=== PATIENT | female | born 1945 | race Caucasian/White ===

== ENCOUNTER 2020-01-28 02:14 | Outpatient (CLI) | payer MEDICARE, SELFPAY ==
[2020-01-28 18:23] LABS: SARS-CoV-2 RNA PCR Negative
== END 2020-01-28 02:15 | disposition home or self-care (01) ==
LOC: ANHCOVIDDT 02:14
PROVIDERS: PCP Physician Assistant; Visit Provider Internal Medicine Gastroenterology
DX: Z01.812 Encounter for preprocedural laboratory examination (principal); Z20.828 Contact with and (suspected) exposure to other viral communicable diseases
CPT/HCPCS: 87635; C9803; U0003

== ENCOUNTER 2020-01-30 01:24 | Day surgery (SDC) | payer MEDICARE, SELFPAY ==
[2020-01-24 09:50] VITALS: BMI 30.9
[2020-01-30] MEDS: LACTATED RINGERS 1,000 ML 150 ML IV CONT (09:09)
--- NOTE | 2020-01-30 09:18 | WPDGICN ---
Assessment and Plan Assessment and plan (1) Family history of colon cancer in father: Code(s): Z80.0 - Family history of malignant neoplasm of digestive organs Status: Acute (2) Anemia: Code(s): D64.9 - Anemia, unspecified Status: Acute Assessment and Plan: Patient has ongoing anemia the etiology of which is unclear. Because of his persistent low blood count an EGD is requested. Previous recent colonoscopy in 2016 was unremarkable. Further recommendations may be given after endoscopy. If anemia persists consider hematology evaluation if GI Endoscopyis not fruitful. GI Consult Note Consult date/time: 01/30/20 09:18 HPI: Kaylin Alvares is a 74 year old female seen in evaluation at the request of ANUM Alba. Patient presents for EGD because of ongoing anemia. Patient initially identified as having anemia in the fall of 2018. She also had change of bowel habits. For these reasons as well as a family history of colon cancer colonoscopy be formed May 2019 was unremarkable. Patient has had ongoing anemia and for this reason is referred for EGD today. She denies abdominal pain. She has had no evidence for bleeding. She denies abdominal pain. Her bowel habits are normal there has been no black or bloody stools. She has describes no bleeding elsewhere. Family history is significant her father had colon cancer. Past medical history is significant for diabetes atherosclerotic heart disease. Review of Systems Review of Systems: All systems reviewed & are unremarkable except as noted in HPI and below PMFSH Past Medical History Medical History Diabetes GERD (gastroesophageal reflux disease) Hyperlipidemia Hypertension Myocardial infarct, old 1986 no no stents and no residual problems Social History Social History Smoking end date: 06/05/96 Alcohol intake: never Meds Home Medications and Allergies Home Medications Medication Instructions Recorded Confirmed Type aspirin [Adult Low Dose Aspirin] 81 mg PO DAILY 04/29/19 01/30/20 History atorvastatin 40 mg PO DAILY 04/29/19 01/30/20 History baclofen 10 mg PO DAILY 04/29/19 01/30/20 History clonazepam 1 - 2 mg PO DAILY 04/29/19 01/30/20 History ergocalciferol (vitamin D2) See Rx Instructions .ROUTE .COMPLEX 04/29/19 01/30/20 History [Vitamin D2] gemfibrozil 600 mg PO DAILY 04/29/19 01/30/20 History levothyroxine 100 mcg PO DAILY 04/29/19 01/30/20 History liraglutide [Victoza 2-Ismael] 0.6 mg SUBCUT DAILY 04/29/19 01/30/20 History lisinopril 5 mg PO DAILY 04/29/19 01/30/20 History metformin 1,000 mg PO BID 04/29/19 01/30/20 History Allergies Allergy/AdvReac Type Severity Reaction Status Date / Time Penicillins Allergy Mild Rash Verified 01/30/20 08:55 Exam Narrative: Exam Narrative: Physical exam reveals patient to be alert. Vital signs stable. HEENT exam unremarkable. Lungs are clear to auscultation and percussion. Heart is without murmur or extra sounds. Abdominal exam bowel sounds are present soft nontender with no organomegaly. Digital external rectal exam normal.
[2020-01-30 09:22] VITALS: BP 141/67; PULSE 79; RESP 17; TEMP 36.9; O2SAT 97; BMI 31.0
[2020-01-30 09:22] LABS: Glucose Point of Care 121 (65-105)
--- NOTE | 2020-01-30 09:47 | WPDANESEPPF ---
Anes - Initial Pre Proc Eval Procedure: Operation Date: 01/30/20 10:00 Proposed Procedures p Esophagogastroduodenoscopy - Aayush Morfin MD Date/Time: 01/30/20 09:47 Surgeon: Aayush Morfin MD Pre Op Diagnosis: iron deficiency anemia Patient Data Age: 74 Gender: F Height: 5 ft 4 in Weight: 82 kg Last Vital Signs Temp 98.5 F 01/30/20 09:22 Pulse 79 01/30/20 09:22 Resp 17 01/30/20 09:22 BP 141/67 H 01/30/20 09:22 Pulse Ox 97 01/30/20 09:22 Allergies Allergy/AdvReac Type Severity Reaction Status Date / Time Penicillins Allergy Mild Rash Verified 01/30/20 08:55 Home Medications Medication Instructions Recorded Confirmed Type aspirin [Adult Low Dose Aspirin] 81 mg PO DAILY 04/29/19 01/30/20 History atorvastatin 40 mg PO DAILY 04/29/19 01/30/20 History baclofen 10 mg PO DAILY 04/29/19 01/30/20 History clonazepam 1 - 2 mg PO DAILY 04/29/19 01/30/20 History ergocalciferol (vitamin D2) See Rx Instructions .ROUTE .COMPLEX 04/29/19 01/30/20 History [Vitamin D2] gemfibrozil 600 mg PO DAILY 04/29/19 01/30/20 History levothyroxine 100 mcg PO DAILY 04/29/19 01/30/20 History liraglutide [Victoza 2-Ismael] 0.6 mg SUBCUT DAILY 04/29/19 01/30/20 History lisinopril 5 mg PO DAILY 04/29/19 01/30/20 History metformin 1,000 mg PO BID 04/29/19 01/30/20 History Laboratory Tests 01/30/20 09:17 POC Capillary Glucose 121 mg/dl H mg/dl (65-105) Patient hx anesthesia problems: none Family hx anesthesia problems: none PMFSH Past Medical History Medical History Diabetes GERD (gastroesophageal reflux disease) Hyperlipidemia Hypertension Myocardial infarct, old 1986 no no stents and no residual problems Social History Social History Smoking end date: 06/05/96 Alcohol intake: never Anes - Eval Final PreProcedure Day of Procedure 01/30/20 09:47 Patient weight: overweight Heart: regular rate and rhythm Lungs: clear to auscultation Airway: Mallampati scale class III Neurological: alert and oriented Last oral intake: >/= 8 hours ASA classification: III Emergent: no Anesthetic plan: proceed Anesthesia type and monitoring: general GIVS and standard monitoring Informed Consent: The patient's anesthetic plan and its attendant risks and benefits were discussed with the patient/family/POA. Questions were solicited and answers provided to the satisfaction of the patient/family/POA.
[2020-01-30 10:04] VITALS: BP 117/64; PULSE 78; RESP 29; O2SAT 97
[2020-01-30 10:14] VITALS: BP 119/61; PULSE 77; RESP 26; O2SAT 95
[2020-01-30 10:24] VITALS: BP 129/63; PULSE 72; RESP 22; O2SAT 96
[2020-01-30 10:26] LABS: Glucose Point of Care 113 (65-105)
== END 2020-01-30 10:41 | disposition home or self-care (01) ==
PROVIDERS: PCP Physician Assistant; Visit Provider Internal Medicine Gastroenterology
PROC: 0DJ08ZZ Inspection of Upper Intestinal Tract, Via Natural or Artificial Opening Endoscopic (ICD-10-PCS; CPT 43235; principal; 2020-01-30 10:00)
DX: D64.9 Anemia, unspecified (principal); Z80.0 Family history of malignant neoplasm of digestive organs; E11.9 Type 2 diabetes mellitus without complications; K21.9 Gastro-esophageal reflux disease without esophagitis; E78.5 Hyperlipidemia, unspecified; I10 Essential (primary) hypertension; I25.2 Old myocardial infarction
CPT/HCPCS: 43235; J2704; J7120

== ENCOUNTER 2020-05-08 11:25 | Emergency (ER) | payer MEDICARE, SELFPAY ==
--- NOTE | ~2020-05-08 | XR_ITS ---
EXAMINATION: XR chest 1V portable EXAM DATE: 05/08/2020 12:20 INDICATION: Cough. TECHNIQUE: Frontal and lateral projections of the chest obtained and reviewed. Comparison is made to prior examination from 05/06/2013. FINDINGS: Some ill-defined but somewhat linear left basilar peripheral opacities probably atelectasis and/or infection. Please clinically correlate. The lungs are otherwise clear. There are no pleural effusions. The cardiomediastinal silhouette is within normal limits. There is no pneumothorax suspe cted. The bones and soft tissues are unremarkable. Some chronic hyperinflation. IMPRESSION: Left basilar subsegmental opacities, likely infection or atelectasis. Reviewed, dictated and finalized at location A. BOLTER OPERATOR IMPRESSION: Left basilar subsegmental opacities, likely infection or atelectasi s.
[2020-05-08 11:35] VITALS: BP 115/60; PULSE 70; RESP 18; TEMP 36.2; O2SAT 99
--- NOTE | 2020-05-08 12:48 | ED.URI ---
HPI - URI/Sore Throat General Chief Complaint: Upper Respiratory Infection Stated Complaint: cough, congestion Time Seen by Provider: 05/08/20 12:16 Source: patient Mode of arrival: ambulatory Limitations: no limitations History of Present Illness HPI Narrative: Patient 75-year-old female complaining of cough, nasal congestion, chest congestion, body aches, headache x3 weeks. Patient denies any neck pain or stiffness, chest pain, shortness of breath, abdominal pain, nausea, vomiting, diarrhea, rash or urinary symptoms. MD elicited complaint: cough, rhinorrhea and nasal congestion Related Data Home Medications Medication Instructions Recorded Confirmed aspirin [Adult Low Dose Aspirin] 81 mg PO DAILY 04/29/19 01/30/20 atorvastatin 40 mg PO DAILY 04/29/19 01/30/20 clonazepam 1 - 2 mg PO DAILY 04/29/19 01/30/20 ergocalciferol (vitamin D2) See Rx Instructions .ROUTE .COMPLEX 04/29/19 01/30/20 [Vitamin D2] gemfibrozil 600 mg PO BID 04/29/19 01/30/20 levothyroxine 100 mcg PO DAILY 04/29/19 01/30/20 liraglutide [Victoza 2-Ismael] 0.6 mg SUBCUT DAILY 04/29/19 01/30/20 lisinopril 5 mg PO DAILY 04/29/19 01/30/20 metformin 1,000 mg PO BID 04/29/19 01/30/20 doxepin 25 mg PO DAILY 05/08/20 [id number] tablet PO 05/08/20 [Adult Multi plus [place]-3] niacin 500 mg PO DAILY 05/08/20 trazodone 50 mg PO HS 05/08/20 Allergies Allergy/AdvReac Type Severity Reaction Status Date / Time Penicillins Allergy Mild Rash Verified 01/30/20 08:55 Review of Systems Review of Systems: All systems reviewed & are unremarkable except as noted in HPI and below Constitutional: Constitutional: Denies chills, Denies excessive sweating, Denies fatigue, Denies fever(s), Denies headache(s), Denies lethargy, Denies malaise, Denies weakness and Denies weight loss Eyes: Eyes: Denies blurry vision, Denies change in vision and Denies loss of vision ENT: Denies dizziness, Denies ear discharge, Denies lip swelling, Denies epistaxis, Denies neck pain, Denies throat swelling and Denies tongue swelling Cardiovascular: Cardiovascular: Denies chest pain, Denies chest pain at rest, Denies chest pain with activity, Denies diaphoresis, Denies rapid heart rate, Denies edema, Denies irregular heart rhythm, Denies lightheadedness, Denies palpitations, Denies dyspnea and Denies dyspnea on exertion Respiratory: Respiratory: Denies chest congestion, Denies cough, Denies hemoptysis, Denies dyspnea and Denies dyspnea on exertion Gastrointestinal: Gastrointestinal: Denies abdominal pain, Denies melena, Denies hematochezia, Denies diarrhea, Denies nausea, Denies vomiting and Denies hematemesis Musculoskeletal: Musculoskeletal: Denies abnormal gait, Denies deformity, Denies joint swelling, Denies limited range of motion, Denies neck pain and Denies numbness Neurologic: Denies Abnormal speech present, Denies abnormal gait, Denies confusion, Denies dizziness, Denies headache(s), Denies focal weakness, Denies loss of vision, Denies numbness, Denies Other visual disturbances, Denies Sensory deficit (Neuro) and Denies weakness Psychiatric: Psychiatric: Denies confusion, Denies depression, Denies auditory hallucinations, Denies homicidal ideation and Denies suicidal ideation Endocrine: Endocrine: Denies cold intolerance, Denies excessive sweating, Denies fatigue, Denies heat intolerance and Denies palpitations Hematologic/Lymphatic: Hematologic/Lymphatic: Denies easy bleeding and Denies easy bruising Allergic/Immunologic: Allergic/Immunologic: Denies lip swelling, Denies throat swelling and Denies tongue swelling [facility] Past Medical History Medical History (Updated 05/08/20 @ 15:46 by Stephen Michelle MD) Diabetes GERD (gastroesophageal reflux disease) Hyperlipidemia Hypertension Myocardial infarct, old 1986 no no stents and no residual problems Family History Family History Other Carcinoma of colon Diabetes
[2020-05-08 13:16] LABS: Alanine Aminotransferase 40 U/L (4-35); Albumin Level 4.2 g/dL (3.5-5.1); Alkaline Phosphatase 117 U/L (38-126); Anion Gap 9 mmol/L (8-16); Aspartate Amino Transferase 60 U/L (14-36); Basophils Percent Auto 0.7 % (0.2-1.2); Bilirubin,Total 0.3 mg/dL (0.2-1.3); Blood Urea Nitrogen 16 mg/dL (7-17); Calcium 9.2 mg/dL (8.4-10.2); Carbon Dioxide 27 mmol/L (22-30); Chloride 102 mmol/L (98-107); Eosinophils Absolute Auto 0.1 K/mm3 (0-0.3); Eosinophils Percent Auto 2.2 % (0-4.4); Estimated CRCL calculation 49 ml/min; Estimated Glomerular Filt Rate > 60; Glucose 73 mg/dL (65-105); Hematocrit 29.1 % (37.0-47.0); Hemoglobin 8.9 g/dL (12.0-15.0); Immature Granulocyte Absolute 0.01 K/mm3 (0.00-0.031); Immature Granulocyte Percent A 0.2 % (0-0.5); Lymphocytes Absolute Auto 1.66 K/mm3 (0.9-3.2); Mean Corpuscular HGB Conc 30.6 g/dl (32-36); Mean Corpuscular Hemoglobin 25.3 pg (26-34); Mean Corpuscular Volume 82.7 fl (80-100); Mean Platelet Volume 9.5 fl (7.4-10.4); Monocytes Absolute Auto 0.4 K/mm3 (0.1-0.6); Monocytes Percent Auto 6.7 % (2.6-8.5); Neutrophils Absolute Auto 3.3 K/mm3 (1.3-6.7); Neutrophils Percent Auto 60.2 % (45.5-73.1); Platelet Count Result 265 k/mm3 (150-375); Potassium 4.8 mmol/L (3.4-5.0); Red Blood Count 3.52 M/mm3 (4.2-5.4); Red Cell Distribution Width 14.5 % (11.5-14.5); Sodium 138 mmol/L (137-145); White Blood Count 5.5 K/mm3 (4.5-10.0)
--- NOTE | 2020-05-08 14:49 | ECG_ITS ---
Measurements Intervals [place] Rate: 66 P: 50 [place]: 125 QRS: -40 QRSD: 137 T: 77 QT: 439 QTc: 463 Interpretive Statements SINUS RHYTHM LEFT AXIS DEVIATION INTRAVENTRICULAR CONDUCTION DELAY CANNOT RULE OUT SEPTAL INFARCT, AGE INDETERMINATE T WAVE ABNORMALITY IN ANTERIOR LEADS- CONSIDER ISCHEMIA ABNORMAL ECG Electronically Signed On 05-08-2020 15:16:25 GINNER HELPER by Carlos Finnegan D.O.
[2020-05-08 15:16] LABS: Troponin I < 0.012 ng/mL (0.000-0.034)
[2020-05-09 00:20] LABS: SARS-CoV-2 RNA PCR Positive
== END 2020-05-08 16:02 | disposition home or self-care (01) ==
PROVIDERS: Emergency Provider Emergency Medicine; PCP Physician Assistant
DX: J06.9 Acute upper respiratory infection, unspecified (principal); Z20.828 Contact with and (suspected) exposure to other viral communicable diseases; R94.31 Abnormal electrocardiogram [ECG] [EKG]; E11.9 Type 2 diabetes mellitus without complications; K21.9 Gastro-esophageal reflux disease without esophagitis; E78.5 Hyperlipidemia, unspecified; I10 Essential (primary) hypertension; I25.2 Old myocardial infarction
CPT/HCPCS: 36415; 71045; 80053; 84484; 85025; 87635; 87804; 93005; 99283; C9803; U0003

== ENCOUNTER → 2021-04-06 09:19 | Outpatient (CLI) | payer MEDICARE, SELFPAY ==
--- NOTE | ~2021-04-06 | XR_ITS ---
EXAMINATION: XR chest 2V DATE: 04/06/2021 10:03 INDICATION: Productive cough TECHNIQUE: PA and lateral views of the chest are obtained. COMPARISON: 05/08/2020 FINDINGS: The lungs are free of acute opacities. There is no pleural effusion or pneumothorax. The ca rdiomediastinal silhouette is normal. There is mild thoracic spondylosis. IMPRESSION: 1. No acute cardiopulmonary abnormality. Reviewed, dictated and finalized at location B.
== END ==
PROVIDERS: PCP Physician Assistant; Visit Provider Physician Assistant
DX: R05.9 Cough, unspecified (principal)
CPT/HCPCS: 71046

== ENCOUNTER → 2022-05-05 09:21 | Outpatient (CLI) | payer MEDICARE, SELFPAY ==
--- NOTE | ~2022-05-05 | CT_ITS ---
EXAMINATION: CT abdomen wo/w con DATE: 05/05/2022 10:04 INDICATION: Abnormal findings of the liver and biliary tract TECHNIQUE: Computed tomography (CT) of the abdomen was performed without and with 100 cc Omnipaque 35 0 intravenous contrast. The dose-length product was 1866.83 mGy-cm. Automated exposure control and it erative reconstruction technique were employed. COMPARISON: None. FINDINGS: There is bilateral lower lobe atelectasis. There is a 3 mm right lower lobe nodule. No sign ificant pleural or pericardial effusion. Heart size normal. There is mild atherosclerosis of the aort a. There are layering gallstones. Gallbladder mildly distended. No renal stones. There is hepatomegal y. No biliary dilatation. No stones identified in the common duct which is nondilated. There is splen omegaly. There are varicosities in the upper abdomen. There is nodular appearance to the liver surfac e, consistent with cirrhosis. The portal vein is prominent. The pancreas, adrenal glands and right ki dney are unremarkable. There is a small subcentimeter hypodensity of the left kidney anteriorly, most likely benign cysts. No significant lymphadenopathy. Nonobstructive bowel pattern. Colonic diverticu losis without evidence for diverticulitis. Mild lumbar spondylosis. No focal lytic or blastic lesions . IMPRESSION: 1. Cirrhosis of the liver with hepatosplenomegaly and probable portal hypertension. 2: Cholelithiasis with mild gallbladder distention. 3: 3 mm right lower lobe nodule, likely benign. Consider follow-up CT in 12 months. Bilateral lower lobe atelectasis. Reviewed, dictated and finalized at location A. TRONIC EQUIPMENT SET UP OPERATOR IMPRESSION: 1. Cirrhosis of the liver with hepatosplenomegaly and probable portal hypertens ion. 2: Cholelithiasis with mild gallbladder distention. 3: 3 mm right lower lobe nodule, likely benign. Consider follow-up CT in 12 mo nths. Bilateral lower lobe atelectasis.
[2022-05-05 09:54] LABS: Estimated Glomerular Filt Rate 40
== END ==
PROVIDERS: PCP Physician Assistant; Visit Provider Physician Assistant
DX: R93.2 Abnormal findings on diagnostic imaging of liver and biliary tract (principal); K74.60 Unspecified cirrhosis of liver; R16.2 Hepatomegaly with splenomegaly, not elsewhere classified; K80.20 Calculus of gallbladder without cholecystitis without obstruction; R91.1 Solitary pulmonary nodule; R91.8 Other nonspecific abnormal finding of lung field
CPT/HCPCS: 74170; Q9967

== ENCOUNTER 2022-05-31 11:04 | Emergency (ER) | payer MEDICARE, SELFPAY ==
--- NOTE | ~2022-05-31 | XR_ITS ---
Clinical Indication: Cough PA and lateral views of the chest: Comparison: 04/06/2021 Findings: Questionable focal airspace opacity or even pulmonary nodule at the right lung base. Left l catarino clear. Cardiomediastinal silhouette is within normal limits. Bones and soft tissues are unremark able. Impression: Questionable focal airspace opacity or pulmonary nodule right lung base. Consider follow-up exam or C T to further evaluate. Reviewed, dictated and finalized at location M. ADVISOR Impression: Questionable focal airspace opacity or pulmonary nodule right lung base. Consid er follow-up exam or CT to further evaluate.
[2022-05-31 12:34] VITALS: BP 101/52; PULSE 89; RESP 16; TEMP 36.4; O2SAT 94
--- NOTE | 2022-05-31 12:41 | ED.URI ---
HPI - URI/Sore Throat General Chief Complaint: Upper Respiratory Infection Stated Complaint: cold/flu sx Time Seen by Provider: 05/31/22 12:41 Source: patient and RN notes reviewed Mode of arrival: ambulatory Limitations: no limitations History of Present Illness HPI Narrative: 77 y/o female presented for c/o cough and head and chest congestion for 2 weeks. Also reports cramping under bilateral lower ribs. Denies sob, wheezing, n/v/d/fever/chills. Taking Robitussin and Mucinex for symptoms. Hx cirrhosis, [place] age 42, diabetes. MD elicited complaint: cough Related Data Home Medications Medication Instructions Recorded Confirmed aspirin 81 mg tablet,delayed 81 mg PO DAILY 04/29/19 05/31/22 release (Adult Low Dose Aspirin) atorvastatin 40 mg tablet 40 mg PO DAILY 04/29/19 05/31/22 clonazepam 1 mg tablet 1 mg PO DAILY 04/29/19 05/31/22 ergocalciferol (vitamin D2) 1,250 50,000 unit DAILY 04/29/19 05/31/22 mcg (50,000 unit) capsule (Vitamin D2) gemfibrozil 600 mg tablet 600 mg PO BID 04/29/19 05/31/22 levothyroxine 100 mcg tablet 100 mcg PO DAILY 04/29/19 05/31/22 liraglutide 0.6 mg/0.1 mL (18 mg/3 0.6 mg subcut DAILY 04/29/19 05/31/22 mL) subcutaneous pen injector (Victoza 2-Ismael) lisinopril 5 mg tablet 20 mg PO DAILY 04/29/19 05/31/22 metformin 1,000 mg tablet 1,000 mg PO BID 04/29/19 05/31/22 baclofen 10 mg tablet 10 mg BID 05/31/22 05/31/22 magnesium 200 mg tablet 200 mg PO DAILY 05/31/22 05/31/22 mecobalamin (vitamin B12) 1,000 1,000 mcg PO DAILY 05/31/22 05/31/22 mcg chewable tablet paroxetine HCl 20 mg tablet 20 mg PO DAILY 05/31/22 05/31/22 warfarin 5 mg tablet 5 mg DAILY 05/31/22 05/31/22 Allergies Allergy/AdvReac Type Severity Reaction Status Date / Time Penicillins Allergy Mild Rash Verified 05/31/22 12:43 Review of Systems Review of Systems: CONSTITUTIONAL: Denies malaise, chills, sweats, fever EYES: Denies visual changes, redness, or discharge ENT: Reports rhinorrhea, congestion, sinus pain,denies otalgia, sore throat CARDIOVASCULAR: Denies chest pain, palpitations, edema RESPIRATORY: Reports cough, post nasal drainage. Denies dyspnea GASTROINTESTINAL: Denies abdominal pain, nausea, vomiting, diarrhea SKIN: Denies rash or itching MUSCULOSKELETAL: denies myalgia NEUROLOGIC: Denies headache [facility] Past Medical History Medical History (Updated 05/31/22 @ 13:23 by Alicia Hernandez APRN) Diabetes GERD (gastroesophageal reflux disease) Hyperlipidemia Hypertension Myocardial infarct, old 1986 no no stents and no residual problems Family History Family History Other Carcinoma of colon Diabetes mellitus Family history of heart disease in male family member before age 55 Social History Social History Smoking end date: 06/05/96 Alcohol intake: never Gender identity (if verbalized by the patient): Female Exam Narrative: GENERAL: Ill-appearing, nontoxic EYES: PERRLA, conjunctivae clear ENT: Mucous membranes moist. TMs pearly murray with dull light reflex bilaterally; no tragal tenderness. NECK: Supple. No lymphadenopathy CHEST: Lungs diminished throughout all owen. Faint wheezing to bases. No respiratory distress, speaks in full sentences. HEART: Regular rate and rhythm. No murmur heard. SKIN: Warm, dry, no rash. NEURO: Alert and oriented x3. PSYCH: Normal mood and affect Course Course Emergency Course: Patient is aware of diagnosis, understands and agrees to treatment plan. Anticipatory guidance given. Patient agrees to follow-up as directed and is aware of reasons to seek care at the emergency department. Portions of this record may have been created with voice recognition software Level of Care: Express Care Visit Vital Signs Vital signs: Vital Signs Temperature 97.6 F 05/31/22 12:34 Pulse Rate 89 05/31/22 12:34 Respiratory Rate 16
== END 2022-05-31 13:27 | disposition home or self-care (01) ==
PROVIDERS: Emergency Provider Nurse Practitioner Family; PCP Physician Assistant
DX: J06.9 Acute upper respiratory infection, unspecified (principal); R91.8 Other nonspecific abnormal finding of lung field; Z87.891 Personal history of nicotine dependence; E11.9 Type 2 diabetes mellitus without complications; Z79.84 Long term (current) use of oral hypoglycemic drugs; K21.9 Gastro-esophageal reflux disease without esophagitis; E78.5 Hyperlipidemia, unspecified; I10 Essential (primary) hypertension; I25.2 Old myocardial infarction; Z79.82 Long term (current) use of aspirin; Z79.01 Long term (current) use of anticoagulants
CPT/HCPCS: 71046; 99213; G0463

== ENCOUNTER 2022-07-16 10:21 | Emergency (ER) | payer MEDICARE, SELFPAY ==
[2022-07-16 10:36] VITALS: BP 121/56; PULSE 67; RESP 16; TEMP 36.3; O2SAT 99
--- NOTE | 2022-07-16 11:19 | ED.EYEPROB ---
HPI - Eye Problem General Chief complaint: Eye Problems Stated complaint: redness/painful r eye Source: patient and RN notes reviewed History of Present Illness HPI Narrative: 77-year-old female presents urgent care with complaints of right eye redness, itching, drainage, and pain. Patient states it started 2 nights ago and has gotten worse since. Patient denies any photophobia, pain with extraocular movement, fevers, chills, vomiting. Patient is unsure visual disturbance. Denies foreign body sensation. Patient does not wear contacts. Some parts of this dictation were generated by voice recognition software and may contain typographical and/or grammatical inaccuracies. Related Data Home Medications Medication Instructions Recorded Confirmed aspirin 81 mg tablet,delayed 81 mg PO DAILY 04/29/19 07/16/22 release (Adult Low Dose Aspirin) atorvastatin 40 mg tablet 40 mg PO DAILY 04/29/19 07/16/22 clonazepam 1 mg tablet 1 mg PO DAILY 04/29/19 07/16/22 ergocalciferol (vitamin D2) 1,250 50,000 unit DAILY 04/29/19 07/16/22 mcg (50,000 unit) capsule (Vitamin D2) gemfibrozil 600 mg tablet 600 mg PO BID 04/29/19 07/16/22 levothyroxine 100 mcg tablet 100 mcg PO DAILY 04/29/19 07/16/22 liraglutide 0.6 mg/0.1 mL (18 mg/3 0.6 mg subcut DAILY 04/29/19 07/16/22 mL) subcutaneous pen injector (Victoza 2-Ismael) lisinopril 5 mg tablet 20 mg PO DAILY 04/29/19 07/16/22 metformin 1,000 mg tablet 1,000 mg PO BID 04/29/19 07/16/22 baclofen 10 mg tablet 10 mg BID 05/31/22 07/16/22 magnesium 200 mg tablet 200 mg PO DAILY 05/31/22 07/16/22 mecobalamin (vitamin B12) 1,000 1,000 mcg PO DAILY 05/31/22 07/16/22 mcg chewable tablet paroxetine HCl 20 mg tablet 20 mg PO DAILY 05/31/22 07/16/22 warfarin 5 mg tablet 5 mg DAILY 05/31/22 07/16/22 Allergies Allergy/AdvReac Type Severity Reaction Status Date / Time Penicillins Allergy Mild Rash Verified 07/16/22 10:31 Review of Systems Review of Systems: CONSTITUTIONAL: Denies fever, chills, or sweats. EYES: Reports right eye pain, drainage, itchiness, and redness ENT: Denies otalgia and sore throat CARDIOVASCULAR: Denies chest pain, palpitations, or edema. RESPIRATORY: Denies cough or dyspnea. GASTROINTESTINAL: Denies abdominal pain, nausea, vomiting, or diarrhea. GENITOURINARY: Denies dysuria or hematuria. SKIN: Denies rash or itching. MUSCULOSKELETAL: Denies back pain, joint pain, or myalgia. NEUROLOGIC: Denies headache, numbness, or weakness. [facility] Past Medical History Medical History (Updated 07/16/22 @ 11:32 by Keerthi Huston APRN) Diabetes GERD (gastroesophageal reflux disease) Hyperlipidemia Hypertension Myocardial infarct, old 1986 no no stents and no residual problems Family History Family History Other Carcinoma of colon Diabetes mellitus Family history of heart disease in male family member before age 55 Social History Social History Smoking end date: 06/05/96 Alcohol intake: never Gender identity (if verbalized by the patient): Female Comments At the time of my signature, I reviewed and agree with the nursing past medical, surgical, social, and family history. There is no relevant family history pertinent to the patient complaint. Exam Narrative: GENERAL: This is a well-nourished, well-developed patient, in no apparent distress. HEAD: normocephalic, atraumatic. EYES: PERRL. right-sided Sclera erythemic. right-sided conjunctiva noted to be injected. Small amount of green drainage from the right eye. No extraocular movement pain. No surrounding rash or blistering. Wood's lamp exam demonstrates no corneal abrasion or foreign body. Eyelid inversion performed with no foreign body. EARS: External ears normal, auditory canals clear and without drainage, TMs normal without perforation. Hearing grossly intact. NOSE: External no
== END 2022-07-16 11:42 | disposition home or self-care (01) ==
PROVIDERS: Emergency Provider Nurse Practitioner Family
DX: H10.9 Unspecified conjunctivitis (principal); E11.9 Type 2 diabetes mellitus without complications; K21.9 Gastro-esophageal reflux disease without esophagitis; E78.5 Hyperlipidemia, unspecified; I10 Essential (primary) hypertension; I25.2 Old myocardial infarction; Z87.891 Personal history of nicotine dependence
CPT/HCPCS: 99213; A9270; G0463

== ENCOUNTER → 2022-09-15 11:36 | Outpatient (CLI) | payer MEDICARE, SELFPAY ==
--- NOTE | ~2022-09-15 | XR_ITS ---
Clinical Indication: Abnormal findings on diagnostic imaging PA and lateral views of the chest: Comparison: 05/31/2022 Findings: The lungs are clear, without evidence of focal consolidation or pleural effusion. Cardiome diastinal silhouette is within normal limits. Bones and soft tissues are unremarkable. Impression: Normal chest. Reviewed, dictated and finalized at location . Impression: Normal chest.
== END ==
PROVIDERS: PCP Physician Assistant; Visit Provider Physician Assistant
DX: R93.89 Abnormal findings on diagnostic imaging of other specified body structures (principal)
CPT/HCPCS: 71046

== ENCOUNTER → 2023-01-25 08:57 | Outpatient (CLI) | payer MEDICARE, SELFPAY ==
--- NOTE | ~2023-01-25 | XR_ITS ---
EXAMINATION: XR hip RT min 2V DATE: 01/25/2023 09:19 INDICATION: Right hip pain TECHNIQUE: Two views of right hip were obtained. COMPARISON: None. FINDINGS: Bone alignment is normal. There is no fracture. There is mild osteoarthritis of the hip. Th e soft tissues are unremarkable. IMPRESSION: 1. Mild osteoarthritis of the hip. Reviewed, dictated and finalized at location A.
--- NOTE | ~2023-01-25 | CT_ITS ---
EXAMINATION: CT diagnostic chest w con DATE: 01/25/2023 09:33 INDICATION: Cough, prior smoker TECHNIQUE: Transaxial computed tomographic images of the chest were obtained after the administration of 75 cc of Omnipaque 350 intravenous contrast. The dose-length product (DLP) was 272.46 mGy-cm. Ite rative reconstruction was used. COMPARISON: None FINDINGS: There is moderate emphysema. There is a 5 mm nodule in the medial aspect of the right lower lobe on image 79. There are 6 mm nodules of the right lower lobe on image 102. There is an 8 mm nodu le left lower lobe on image 96. Additional scattered noncalcified pulmonary nodules throughout the yohannes ngs measure up to 2 mm. There is mild atelectasis. No pleural effusion or pneumothorax. No pathologic ally enlarged thoracic lymph nodes are identified. The heart size is normal. There is a small sliding hiatal hernia. There is a bone island in the T6 vertebral body. IMPRESSION: 1. Multiple pulmonary nodules measuring up to 8 mm which may be benign or malignant. Given patient's history of emphysema and tobacco use, low-dose follow-up CT in three months is recommended. Reviewed, dictated and finalized at location A. IMPRESSION: 1. Multiple pulmonary nodules measuring up to 8 mm which may be benign or malig nant. Given patient's history of emphysema and tobacco use, low-dose follow-up CT in three months is recommended.
[2023-01-25 09:26] LABS: Estimated Glomerular Filt Rate 40
== END ==
PROVIDERS: PCP Physician Assistant; Visit Provider Physician Assistant
DX: R05.3 Chronic cough (principal); R91.8 Other nonspecific abnormal finding of lung field; M16.11 Unilateral primary osteoarthritis, right hip
CPT/HCPCS: 71260; 73502; Q9967

== ENCOUNTER 2024-03-26 11:23 | Outpatient (CLI) | payer MEDICARE, SELFPAY ==
--- NOTE | ~2024-03-26 | XR_ITS ---
CHEST RADIOGRAPH, PA AND LATERAL CLINICAL HISTORY: chronic cough . COMPARISON: 03/26/2024 TECHNIQUE: PA and lateral views of the chest. FINDINGS The cardiomediastinal silhouette is unremarkable. Overlying soft tissues projecting over the left mid to lower lung field, not felt to be parenchymal i n origin. The lungs are clear. Visualized osseous structures and soft tissues are unremarkable. IMPRESSION: No focal infiltrate or effusion. Reviewed, dictated and finalized at location A.
== END 2024-03-26 11:24 | disposition home or self-care (01) ==
PROVIDERS: PCP Internal Medicine Cardiovascular Disease; Visit Provider Physician Assistant
DX: R05.3 Chronic cough (principal)
CPT/HCPCS: 71046